=== PATIENT | male | born 1960 | race Caucasian/White ===

== ENCOUNTER → 2017-04-09 | Outpatient (CLI) | payer BC ==
[~2017-04-09] MED LIST: ALPR0.25 PO; ATEN25TA PO; CELE1CAP8 PO; COMMODE 3-IN-11 MIS; DULO1CAP2 PO; FURO40TA PO; HYDR-3580 PO; OXYC1TAB63 PO; POTA10TA2 PO; WALKER WHEELS/F1 MIS; XARE10TA PO; [UNRECOGNIZED DRUG - CODE] PO
== END ==
LOC: CPRE 11:36
PROVIDERS: ATTEND Orthopaedic Surgery Orthopaedic Surgery of the Spine
DX: Z01.812 Encounter for preprocedural laboratory examination (principal)

== ENCOUNTER 2017-04-20 11:30 | Inpatient (IN) | payer BC ==
[~2017-04-20] VITALS: Ht 177.8 cm; Wt 88.4 kg
[~2017-04-20 11:30] MED LIST changes: -COMMODE 3-IN-11 MIS; -HYDR-3580 PO; -OXYC1TAB63 PO; -WALKER WHEELS/F1 MIS; -XARE10TA PO
--- NOTE | 2017-04-27 06:52 | MH ---
cc: DAY FREDERICK DATE OF ADMISSION: 04/27/2017 ADMISSION DIAGNOSIS Right hip avascular necrosis versus inflammatory arthropathy. HISTORY This is a 56-year-old male with severe right hip pain. Investigative studies show evidence of collapse of the right hip consistent with either aggressive inflammatory arthropathy versus avascular necrosis. Despite conservative care the patient is painful and symptomatic. He presents for surgical treatment. PAST MEDICAL HISTORY, SOCIAL HISTORY, FAMILY HISTORY, REVIEW OF SYSTEMS See attached notes. PHYSICAL EXAMINATION GENERAL: A 56-year-old male in moderate distress with his right hip. HEENT: Normocephalic, atraumatic. Pupils equal, round, reactive to light and accommodation. Extraocular motions intact. NECK: Supple. CHEST: Clear. HEART: Regular rate and rhythm. ABDOMEN: Soft, nontender with normoactive bowel sounds. MUSCULOSKELETAL EXAMINATION: Right hip pain with range of motion. There is a 10-degree flexion contracture, pain with flexion, especially internal and external rotation. Neurovascular and vascular examination is within normal limits. IMPRESSION Osteoarthritis of the right hip versus avascular necrosis of the right hip. PLAN Right total hip replacement arthroplasty, direct anterior exposure. CONSENT There are risks with surgery including infection, bleeding, loss of motion, continued pain, need for further surgery, neurologic and vascular injury. The patient understands these issues and wishes to press on with the surgery as outlined above. MD JEAN-PIERRE Ang/TONYA /10:31 PM /6:44 AM
[2017-04-27] MEDS ORDERED: VANCOMYCIN 1000 MG/NS 250 ML (for <70 kg) IV SCH ×2 (07:00)
[2017-04-27] MEDS ORDERED: SODIUM CHLORID 0.9% 500 ML IV PRN (07:00)
[2017-04-27] MEDS ORDERED: CHLORHEXIDINE GLUCONATE 2 % 1 PACK (2 CLOTHS) TOPICAL PRN (07:00)
[2017-04-27] MEDS ORDERED: POVIDONE IODINE 5% (ANTISEPSIS KIT) 4 APPLICATIONS EACH NARE PRN (07:00)
[2017-04-27] MEDS ORDERED: METOPROLOL TARTRATE 25 MG TAB PO PRN (07:00)
[2017-04-27] MEDS ORDERED: POVIDONE IODINE 7.5% SCRUB 118 ML BOTTLE TOPICAL SCH (07:00)
[2017-04-27] MEDS ORDERED: LACTATED RINGER'S 1000 ML IV PRN (07:00)
[2017-04-27] MEDS ORDERED: INSULIN HUMAN REGULAR 1,000 UNITS/10 ML VIAL SQ PRN (07:00)
[2017-04-27] MEDS ORDERED: TRANEXAMIC ACID INJ 885 MG in SODIUM CHLORIDE 0.9% INJ 100 ML IV SCH (08:00)
[2017-04-27] MEDS ORDERED: GENTAMICIN SULFATE 80 MG/2 ML VIAL ONE (09:23)
[2017-04-27] MEDS ORDERED: ACETAMINOPHEN 1000 MG/100 ML 100 ML IV ONE (10:18)
[2017-04-27] MEDS ORDERED: CLINDAMYCIN PHOS 600 MG/4 ML VIAL ONE (10:42)
[2017-04-27] MEDS: EXPAREL PERI-ARTICULAR INJECTION (TOTAL VOL. 60 ML) P-ARTICULR SCH ×2 (11:59)
[2017-04-27] MEDS ORDERED: LACTATED RINGER'S 1000 ML INJ 2,000 ML IV ONE (12:00)
[2017-04-27] MEDS ORDERED: MIDAZOLAM HCL 2 MG/2 ML VIAL IV ONE (12:00)
[2017-04-27] MEDS ORDERED: NEOSTIGMINE 3 MG/3 ML SYR IV ONE (12:00)
[2017-04-27] MEDS ORDERED: GLYCOPYRROLATE 0.2 MG/ML VIAL IV ONE (12:00)
[2017-04-27] MEDS ORDERED: PHENYLEPH/NS 1000 MCG/10 ML SYR IV ONE (12:00)
[2017-04-27] MEDS ORDERED: ROCURONIUM INJ 50 MG/5 ML SYRINGE IV PUSH ONE (12:00)
[2017-04-27] MEDS ORDERED: SODIUM CHLOR 0.9% 250 ML INJ 250 ML IV ONE (12:00)
[2017-04-27] MEDS ORDERED: LIDOCAINE HCL 1% PF 5 ML AMPULE OTHER ONE (12:00)
[2017-04-27] MEDS ORDERED: PROPOFOL 200 MG/20 ML AMP IV ONE (12:00)
[2017-04-27] MEDS ORDERED: ePHEDrine/NS 25 MG/5 ML SYR IV ONE (12:00)
--- NOTE | 2017-04-27 13:11 | PD.OP ---
cc: Blas Meadows MD Operative Report Date of Surgery: Apr 27, 2017 Preoperative Diagnosis: Osteoarthritis right hip, severe Postoperative Diagnosis: Same Procedure: Right total hip replacement arthroplasty, direct anterior exposure. Bone grafting right acetabulum Anesthesia: Gen. Surgeon: Blas Meadows Jack Machine Operator(s): JAMARI He Operation and Findings: EBL: 750 cc INDICATION: This patient presents with significant hip pain related to severe osteoarthritis right hip with severe acetabular dysplasia with evidence of change of the femoral head which may be consistent with inflammatory arthropathy versus avascular necrosis. Despite extensive conservative care this patient continues to be painful and now presents for surgical treatment. NOTE: Rae He PA-C was present for the entire surgical procedure as my first coat sander. In my medical opinion her skill and care was necessary for the proper management of this patient. COMPONENTS: COMPANY: [employer] CUP: [place], 58 mm, 100 series, gription surface LINER: Altrx 36, neutral STEM: [place], size 16, high offset, hydroxyapatite-coated HEAD: 36, +8.5, ceramic, 12/14 taper PROCEDURE: This patient was brought to the operating room and anesthetized in the supine position and positioned on the fracture table with both legs held extended. The right hip and leg was scrubbed with alcohol followed by Hibiclens followed by ChloraPrep and draped sterilely. Antibiotics were given within routine time window and a timeout was done. A 4 inch incision was made starting 2 cm distal and 2 cm lateral to the anterior superior iliac spine. The fascia jimmy was opened longitudinally. The interval between the fascia jimmy and the rectus was opened down to the capsule of the hip joint. Retractors were positioned allowing good visualization of the capsule. This was opened longitudinally and flaps were created. Stay sutures were utilized. Exposure was excellent. The neck was cut at the proper location using fluoroscopy as a guide. The head was removed. Deep retractors were positioned allowing good visualization of the acetabulum. Acetabulum was deepened down to the floor starting with a proper size reamer and reaming up to 57 mm. A trial was utilized. There was significant osteophyte lysis deep. A cystic region was curetted. Bone grafting from the femoral head was packed into this defect and reverse reamed with a 56 mm reamer. Fluoroscopy was used to check position and confirmed satisfactory alignment. The rim was reamed with a 58 mm reamer and the final cup was positioned in approximately 20 of anteversion and 40-45 of abduction. Position was satisfactory. A single hole eliminator was positioned followed by the final liner. The lifting hook was utilized. The leg was dropped to the floor, maximally externally rotated and brought across the midline. Retractors were positioned. A box osteotome was utilized followed by progressive broaching to the proper stem size. Trial reduction showed excellent alignment and fit. With 60 of external rotation the leg was dropped to the floor without evidence of anterior subluxation. The wound was irrigated. The final stem was inserted and was found to be very stable. The final reduction using the final head. Stability was as previously noted. Intraoperative x-rays were taken. The wound was irrigated copiously. Hemostasis was controlled. Local anesthesia was utilized. The capsule was repaired with #2 Tycron sutures. The fascia jimmy was repaired with running 0 PDS on a loop. Subcutaneous tissue was approximated with 2-0 Vicryl and skin with running intradermal 3-0 Vicryl followed by Steri-Strips. A sterile dressing was applied. The patient was awakened and taken to the recovery room in satisfactory condition. FINDINGS: There was severe osteophyte lysis. The greater trochanter had a slight fatigue that could be felt along the edge. Bone grafting the acetabulum was very satisfactory. The final fit and stability was excellent. Circumferential osteophytes were removed with a combination of osteotomes and Rongeurs. Blas Meadows MD Apr 27, 2017 13:11
[2017-04-27] MEDS ORDERED: MORPHINE SULFATE 30 MG/30 ML PCA IV SCH (13:15)
[2017-04-27] MEDS ORDERED: MISCELLANEOUS PHARMACY INFORMATION XX ONE (13:15)
[2017-04-27] MEDS ORDERED: SODIUM CHLORIDE 0.9% FLUSH 5 ML FLUSH IVF PRN (13:15)
[2017-04-27] MEDS ORDERED: NALOXONE HCL 0.4 MG/ML AMP IV PRN (13:15)
[2017-04-27] MEDS ORDERED: MISCELLANEOUS NURSING INFORMATION XX PRN (13:15)
[2017-04-27] MEDS ORDERED: XARE10TA PO (13:19)
[2017-04-27] MEDS ORDERED: HYDR-3580 PO (13:19)
[2017-04-27] MEDS ORDERED: Post-op Orders (for Pharmacy) MISC XX ONE (13:28)
[2017-04-27] MEDS ORDERED: DO NOT ADM ANY ANTICOAGULANT DRUGS PRN (13:28)
[2017-04-27] MEDS: LACTATED RINGER'S 1000 ML INJ 1,000 ML IV SCH (13:45)
[2017-04-27] MEDS: PCA - TOTAL MG MORPHINE DELIVERED PER SHIFT SCH ×2 (14:00→22:06)
--- NOTE | 2017-04-27 14:05 | RADRPT ---
EXAM DATE/TIME: 04/27/2017 11:41 [facility] COMPARISON: No previous studies available for comparison. INDICATIONS : Right total hip replacement in OR. MEDICAL HISTORY : None. SURGICAL HISTORY : None. ENCOUNTER: Initial ACUITY: 1 day PAIN SCORE: Non-responsive. LOCATION: Right hip CONCLUSION: Fluoroscopic images during right hip arthroplasty. Maurisio Young MD on April 27, 2017 at 14:04 Board Certified Radiologist. This report was verified electronically.
[2017-04-27] MEDS ORDERED: ALPRAZolam 0.25 MG TAB PO PRN (14:30)
[2017-04-27] MEDS ORDERED: ACETAMINOPHEN/HYDROcodone 325 MG/7.5 MG TAB PO PRN (15:00)
[2017-04-27 17:28] VITALS: BP 92/61; PULSE 99; RESP 16; TEMP 98.1; O2SAT 99
[2017-04-27] MEDS: SENNOSIDES 8.6 MG TAB PO SCH (19:59)
[2017-04-27] MEDS: ACETAMINOPHEN/HYDROcodone 325 MG/7.5 MG TAB PO PRN (20:00)
[2017-04-27] MEDS: MAGNESIUM HYDROXIDE SUSP 30 ML CUP PO SCH (20:03)
[2017-04-27] MEDS: SODIUM CHLORIDE 0.9% FLUSH 5 ML FLUSH IVF SCH (20:03)
[2017-04-27 20:05] VITALS: BP 108/71; PULSE 102; RESP 16; TEMP 96.8; O2SAT 100
--- NOTE | 2017-04-27 22:26 | HHI.DCPOC ---
Discharge Care Plan Diagnosis: (1) Avascular necrosis of bone of right hip (2) Osteoarthritis of right hip Your Health Problems Are: Incision/Drains Swelling Goals to Promote Your Health * To prevent worsening of your condition and complications * To maintain your health at the optimal level Directions to Meet Your Goals Take your medications as prescribed Follow your dietary instruction Follow activity as directed Keep your appointments as scheduled Take your immunizations and boosters as scheduled If your symptoms worsen call your PCP, if no PCP go to Urgent Care Center or Emergency Room Smoking is Dangerous to Your Health. Avoid second hand smoke Call the 24-hour hour crisis hotline for domestic abuse at Rachel Fam Apr 27, 2017 22:26
--- NOTE | 2017-04-27 22:28 | HHI.DS ---
Discharge Summary Admission Date Apr 27, 2017 at 06:34 Discharge Date: Apr 29, 2017 Admitting Diagnosis see below Diagnosis: (1) Osteoarthritis of right hip Diagnosis: Principal ICD Codes: M16.11 - Unilateral primary osteoarthritis, right hip (2) Avascular necrosis of bone of right hip Diagnosis: Principal ICD Codes: M87.051 - Idiopathic aseptic necrosis of right femur Procedures Right total hip arthroplasty, direct anterior approach Brief History This is a 56 year old male patient with a multi-year history of right hip pain. He was treated at the OR for quite some time. He began using a cane or walker approximately 3 yeas ago when his function began to decline rapidly. He underwent treatment including.... Hospital Course Surgical treatment was performed on the day of admission without complication. He recovered well in PACU and was transferred to the orthopedic floor. Pain was controlled with IV and oral medications. DVT prophylaxis was initiated postop day 1 with Xarelto 10 mg. The patient was compliant with physical therapy and his weightbearing restriction of 50%. After 2 days he was found to be stable and discharged home with home health care. He was educated to pursue a high-fiber diet, continue his xarelto, and to continue a physical therapy program with weight restrictions. Pt Condition on Discharge: Stable Discharge Disposition: Disch w/ Home Health Serv Discharge Instructions Diet Instructions: As Tolerated, No Restrictions, High Fiber Diet Activities You Can Perform: Partial Weight Bearing Activities to Avoid: Strenuous Activity Additional Activity Instruc.: 50% wt bear New Medications: Commode 3-in-1 (Commode 3-in-1) 1 Mis Mis EA .ROUTE DIRECTED, #1 0 Refills Walker with Front Wheels (Walker with Front Wheels) 1 Mis Mis EA .ROUTE DIRECTED, #1 0 Refills Hydrocodone-Acetaminophen (Hydrocodone-Acetaminophen) 7.5-325 mg Tab 1 TAB PO Q4H PRN for Pain, #50 TAB Rivaroxaban (Xarelto) 10 Mg Tab 10 MG PO Q24H for Prevent Blood Clot, #25 TAB Continued Medications: [place]-Hydrochlorothiazide (Tekturna Hct) 150-25 Mg Tab 1 TAB PO DAILY for Blood Pressure Management, #30 TAB 0 Refills Alprazolam (Alprazolam) 0.25 Mg Tab 0.25 MG PO BID PRN for ANXIETY, TAB 0 Refills Atenolol (Atenolol) 25 Mg Tab 25 MG PO DAILY for Blood Pressure Management, #30 TAB Celecoxib (Celecoxib) 200 Mg Cap 400 MG PO DAILY for Pain Management, CAP [address] (Duloxetine DR) 30 Mg Capdr 30 MG PO DAILY, #30 CAP 0 Refills Furosemide (Furosemide) 40 Mg Tab 40 MG PO DAILY, #30 TAB 0 Refills Potassium Chloride ER (Potassium Chloride ER) 10 Meq Tab 10 MEQ PO DAILY for Electrolyte Replacement, #30 TAB 0 Refills Rachel Fam Apr 27, 2017 22:28
[2017-04-27] MEDS ORDERED: WALKER WHEELS/F1 MIS (22:29)
[2017-04-27] MEDS ORDERED: COMMODE 3-IN-11 MIS (22:30)
--- NOTE | 2017-04-27 22:33 | HHI.FF ---
Face to Face Verification Diagnosis: (1) Osteoarthritis of right hip (2) Avascular necrosis of bone of right hip Physical Therapy Gait training, Safety evaluation, Transfer training, bed to chair Hip: Total hip, Protocol: Right, Progress to weight bearing Right LE Weight Bearing: Partial WB 50% Additional Instructions PT 4 days/wk for 2 weeks. 50% WBing x 4 weeks RLE. Anterior SUDHA precautions. Gait training, use of walker. Nursing RN Days per Week: 2 x Week(s): 1 Dressing Changes: Do not change dressing Additional Instructions Vitals assessment, dressing assessment. DO not change dressing unless saturated or erythema. Ok to shower pod#5 if kept sealed and dry. I have seen patient Neftali Bojorquez on 04/27/17. My clinical findings support the need for the requested home health care services because: Limited ability to care for self High risk of falls I certify that my clinical findings support that this patient is homebound because: Post-op weakness Unsteady gait/balance Rachel Fam Apr 27, 2017 22:33
[2017-04-28 00:15] VITALS: BP 89/66; PULSE 99; RESP 16; TEMP 98.7; O2SAT 99
[2017-04-28] MEDS: LACTATED RINGER'S 1000 ML INJ 1,000 ML IV SCH ×3 (00:27→21:21)
[2017-04-28 04:58] VITALS: BP 98/74; PULSE 120; RESP 17; TEMP 97.7; O2SAT 97
[2017-04-28] MEDS: ACETAMINOPHEN/HYDROcodone 325 MG/7.5 MG TAB PO PRN ×2 (05:04→12:27)
[2017-04-28] MEDS: PCA - TOTAL MG MORPHINE DELIVERED PER SHIFT SCH (05:05)
[2017-04-28 06:58] LABS: REVIEW FLAG FINAL
[2017-04-28 08:00] VITALS: BP 96/62; PULSE 92; RESP 18; TEMP 97.3; O2SAT 97
[2017-04-28] MEDS: POTASSIUM CHLORIDE 10 MEQ CONTROLLED RELEASE TAB PO SCH (09:00)
[2017-04-28] MEDS: FUROSEMIDE 40 MG TAB PO SCH (09:00)
[2017-04-28] MEDS ORDERED: HYDROCHLOROTHIAZIDE PO SCH (09:00)
[2017-04-28] MEDS ORDERED: ALISKIREN PO SCH (09:00)
[2017-04-28] MEDS: SODIUM CHLORIDE 0.9% FLUSH 5 ML FLUSH IVF SCH ×2 (09:00→21:00)
[2017-04-28] MEDS: ALISKIREN HEMIFUMARATE 150 MG TAB PO SCH (09:00)
[2017-04-28] MEDS: HYDROCHLOROTHIAZIDE 25 MG TAB PO SCH (09:00)
[2017-04-28] MEDS: ATENOLOL 25 MG TAB PO SCH (09:02)
[2017-04-28] MEDS: DULoxetine HCl DR 30 MG CAP PO SCH (09:02)
[2017-04-28] MEDS: MAGNESIUM HYDROXIDE SUSP 30 ML CUP PO SCH ×2 (09:02→21:18)
[2017-04-28] MEDS ORDERED: INFLUENZA VIRUS VACCINE (QUADRIVALENT) 0.5 ML SYR IM ONE (10:00)
[2017-04-28 12:00] VITALS: BP 111/67; PULSE 87; RESP 18; TEMP 97.3; O2SAT 100
[2017-04-28] MEDS: RIVAROXABAN 10 MG TAB PO SCH (12:26)
[2017-04-28] MEDS ORDERED: oxyCODONE/ACETAMINOPHEN 5 MG/325 MG TAB PO PRN (13:00)
[2017-04-28] MEDS ORDERED: MORPHINE SULFATE 8 MG/ML INJ IM PRN (14:00)
[2017-04-28 16:00] VITALS: BP 109/64; PULSE 99; RESP 18; TEMP 97.3; O2SAT 88
[2017-04-28] MEDS: oxyCODONE/ACETAMINOPHEN 5 MG/325 MG TAB PO PRN (18:28)
[2017-04-28 20:25] VITALS: BP 113/76; PULSE 104; RESP 18; TEMP 98.8; O2SAT 96
[2017-04-28] MEDS: SENNOSIDES 8.6 MG TAB PO SCH (21:18)
[2017-04-29 00:55] VITALS: BP 109/59; PULSE 109; RESP 18; TEMP 99.3; O2SAT 95
[2017-04-29] MEDS: oxyCODONE/ACETAMINOPHEN 5 MG/325 MG TAB PO PRN ×3 (00:58→11:53)
[2017-04-29 04:55] VITALS: BP 101/59; PULSE 115; RESP 18; TEMP 99.9; O2SAT 96
[2017-04-29 08:00] VITALS: BP 109/62; PULSE 106; RESP 17; TEMP 99.5; O2SAT 97
[2017-04-29] MEDS ORDERED: OXYC1TAB63 PO (08:21)
--- NOTE | 2017-04-29 08:43 | PD.ORT.PN ---
Subjective Subjective Remarks He continues to improve. His pain is 'already better than before surgery'. He states he has walked down the burr several times. He had a BM last night. No other complaints. No CP or SOB. Ready for d/c home. Objective Vitals Vital Signs Date Time Temp Pulse Resp B/P (MAP) Pulse Ox O2 Delivery O2 Flow Rate FiO2 04/29/17 07:20 Room Air 04/29/17 04:55 99.9 115 18 101/59 (73) 96 04/29/17 00:55 99.3 109 18 109/59 (76) 95 04/28/17 20:25 98.8 104 18 113/76 (88) 96 04/28/17 16:00 97.3 99 18 109/64 (79) 88 04/28/17 12:00 97.3 87 18 111/67 (82) 100 I/O 04/28/17 04/28/17 04/28/17 04/29/17 04/29/17 04/29/17 07:00 15:00 23:00 07:00 15:00 23:00 Intake Total 480 ml 1220 ml 480 ml 480 ml Output Total 250 ml 750 ml Balance 230 ml 1220 ml 480 ml -270 ml Intake Oral 480 ml 1220 ml 480 ml 480 ml Output Urine Total 250 ml 750 ml # Voids 1 1 # Bowel Movements 0 0 0 1 Result Diagram: 04/28/17 0625 Procedures Right total hip arthroplasty, direct anterior approach Objective Remarks Sitting up in bed, NAD PT staff at bedside VSS RLE Dressing c/d/i, no new drainage, mild-moderate swelling, no erythema thigh and calf supple, neg homans, 1+ pedal edema distal +motor, +sens, +nvi Assessment & Plan Ortho Post Op Day #: 2 Problem List: (1) Osteoarthritis of right hip ICD Codes: M16.11 - Unilateral primary osteoarthritis, right hip Qualifiers: Qualified Codes: M16.11 - Unilateral primary osteoarthritis, right hip (2) Avascular necrosis of bone of right hip ICD Codes: M87.051 - Idiopathic aseptic necrosis of right femur Assessment and Plan pod#2 s/p R SUDHA, anterior approach Ortho stable. Pain improving. Changed PO meds to oxycodone yesterday. Pt doing well. Home Rx printed. PT - WBAT RLE. Anterior SUDHA precautions. Walker. Hold dressing changes unless saturated. Xarelto 10mg qd for 4 weeks. D/C planning, home w [facility] today. F2F written. DME written. Follow up in 2 weeks as scheduled. Rachel Fam Apr 29, 2017 08:43
[2017-04-29] MEDS: SODIUM CHLORIDE 0.9% FLUSH 5 ML FLUSH IVF SCH (08:59)
[2017-04-29] MEDS: POTASSIUM CHLORIDE 10 MEQ CONTROLLED RELEASE TAB PO SCH (09:00)
[2017-04-29] MEDS: MAGNESIUM HYDROXIDE SUSP 30 ML CUP PO SCH (09:00)
[2017-04-29] MEDS: HYDROCHLOROTHIAZIDE 25 MG TAB PO SCH (09:00)
[2017-04-29] MEDS: ALISKIREN HEMIFUMARATE 150 MG TAB PO SCH (09:00)
[2017-04-29] MEDS: FUROSEMIDE 40 MG TAB PO SCH (09:00)
[2017-04-29] MEDS: ATENOLOL 25 MG TAB PO SCH (09:11)
[2017-04-29] MEDS: DULoxetine HCl DR 30 MG CAP PO SCH (09:11)
[2017-04-29] MEDS: RIVAROXABAN 10 MG TAB PO SCH (11:53)
[2017-04-29 12:00] VITALS: BP 114/70; PULSE 105; RESP 17; TEMP 97.8; O2SAT 100
== END 2017-04-29 14:16 | disposition home health service (06) | DRG 470 ==
LOC: HSDI 04-27 06:34 → N06A 04-27 17:10
PROVIDERS: ADMIT Orthopaedic Surgery Orthopaedic Surgery of the Spine; ATTEND Orthopaedic Surgery Orthopaedic Surgery of the Spine
PROC: 0SR903A Replacement of Right Hip Joint with Ceramic Synthetic Substitute, Uncemented, Open Approach (ICD-10-PCS; principal; 2017-04-27 10:44)
DX: M16.11 Unilateral primary osteoarthritis, right hip (principal); M87.9 Osteonecrosis, unspecified; M12.851 Other specific arthropathies, not elsewhere classified, right hip; Z23 Encounter for immunization
CPT/HCPCS: 73502; 76000; 85014; 85018; 86850; 86900; 86901; 86920; 90686; 94150; C1776; C9290; J0131; J1580; J2250; J2270; J2370; J2710; J3010; J3370; J7050; J7120; Q2038